=== PATIENT | male | born 1985 ===

== ENCOUNTER 2017-02-16 18:59 | Emergency (ER) | payer SELFPAY ==
[2017-02-16 19:09] VITALS: PULSE 87; TEMP 98.3; O2SAT 98
[2017-02-16] MEDS ORDERED: Oxycodone/Acetaminophen 5/325 mg Tab PO STA (19:55)
[2017-02-16] MEDS ORDERED: Oxycodone/Acetaminophen 5/325 mg Tab ONE (19:57)
--- NOTE | 2017-02-16 20:00 | C.PDOC ---
History Of Present Illness 32 yo male come in for evaluation of Left shoulder pain developed for past few hours after sustained mechanical fall, while playing sports. Pt reports, fell onto Left shoulder and " bone stick out from my shoulder", pain on Left shoulder movement. Otherwise, pt denies head injury, LOC, syncope, headache, dizziness, neck pain, CP, SOB, dyspnea, diaphoresis, palpitation, back pain, denies obvious deformity to left arm, weakness, sensory or vascular deficits to LUE. Denies any other active complaints. Ambulate to ED for evaluation, appears in pain. Time Seen by Provider: 02/16/17 19:13 Chief Complaint (Nursing): Upper Extremity Problem/Injury History Per: Patient History/Exam Limitations: no limitations Onset/Duration Of Symptoms: Hrs (past few hours) Current Symptoms Are (Timing): Still Present Quality: "Pain" Severity: Mild Pain Scale Rating Of: 3 Exacerbating Factor(s): Movement Recent travel outside of the [place]: No Past Medical History Reviewed: Historical Data, Nursing Documentation, Vital Signs Vital Signs: Last Vital Signs Temp 98.3 F 02/16/17 19:07 Pulse 87 02/16/17 19:07 Resp 16 02/16/17 19:07 BP Pulse Ox 98 02/16/17 20:06 Family History: States: Unknown Family Hx - Social History Hx Alcohol Use: No Hx Substance Use: No - Immunization History Hx Tetanus Toxoid Vaccination: No Hx Influenza Vaccination: No Hx Pneumococcal Vaccination: No Review Of Systems Except As Marked, All Systems Reviewed And Found Negative. Constitutional: Negative for: Other (diaphoresis) Cardiovascular: Negative for: Chest Pain, Palpitations, Other (sensory or vascular deficits to LUE) Respiratory: Negative for: Shortness of Breath, Other (dyspnea) Musculoskeletal: Positive for: Shoulder Pain (left). Negative for: Neck Pain, Back Pain, Other (obvious deformity of left shoulder) Neurological: Negative for: Weakness, Numbness, Headache, Dizziness, Other ( loss of consciousness, head injury, syncope) Physical Exam - Physical Exam Appears: Well, Non-toxic, No Acute Distress Skin: Normal Color, Warm, No Rash, No Ecchymosis Head: Atraumatic, Normacephalic Eye(s): bilateral: PERRL Nose: No Epistaxis, No Deformity, No Tenderness Neck: No Midline Cervical Tenderness, No Paracervical Tenderness, No Step Off Deformity, Supple Chest: Symmetrical, No Deformity, No Tenderness Cardiovascular: Rhythm Regular Respiratory: No Stridor, No Wheezing Back: No CVA Tenderness, No Vertebral Tenderness Extremity: Normal ROM (mild discomfort on Left shoulder extension/abduction due to pain, otherwise FAROM of PHIL.), Tenderness (over Left superior shoulder with mild deformity overlying ACJ. NO skin changes, no neurovascular deficits distally to injury.), No Deformity, No Swelling Neurological/Psych: Oriented x3, Normal Speech, Normal Motor, Normal Sensation, Normal Reflexes ED Course And Treatment O2 Sat by Pulse Oximetry: 98 (room air) Pulse Ox Interpretation: Normal - Other Rad Left shoulder X-Ray: Read By Radiologist Interpretation: Creator : Pierce Erickson MD. Dictator : Pierce Erickson MD. Adult Psychiatrist : Fire Assistant : Pierce Erickson MD. Approver2 : Report Date : 2016 20:52:51. My Comment : . Left shoulder three views. History: Injury. Comparison: None available. Findings: 1.6 centimeter superior displacement of the clavicle in relationship to the acromion. Glenohumeral joint space is preserved. Impression: 1.6 centimeter superior displacement of the clavicle in relationship to the acromion. Left clavicle X-Ray: Read By Radiologist Interpretation: Findings: 1.6 centimeter superior displacement of the left clavicle in relationship to the acromion. Glenohumeral joint space is preserved. Impression: 1.6 centimeter superior displacement of the left clavicle in relationship to the acromion. Progress Note: Plan: Percocet, Left clavicle x-ray, left shoulder x-ray. On re- evaluation, pt is afebrile, hemodynamicaly stable. Non-toxic. PulseOx 98% RA. Head: AT/NC. ENT: no acute finidngs. uvula midline, no edema. Neck: (-) midline tenderness. Lungs: CTA B/L, BS equal B/L. LUE: exam c/w shoulder and clavicular contusion r/o fracture, no neurovascular deficits. Xray review and c /w (+) left clavicular fx vs displacement. Sling, analgesics. Pt advised. ref. to F/u with Ortho in 1-2 days for re-eval. return if any new changes. Disposition Counseled Patient/Family Regarding: Studies Performed, Diagnosis, Need For Followup, Rx Given - Disposition Referrals: Kevin Catalan MD [Staff Provider] - [facility] [place] [Outside] [facility] [Outside] Disposition: HOME/ ROUTINE Disposition Time: 20:15 Condition: STABLE Additional Instructions: Sling pain medication as prescribed Follow up with Orthopedist in 2-3 days for re-evaluation. Return if any new changes. Prescriptions: traMADol [Ultram] 50 mg PO TID #10 tab Instructions: Clavicle Fracture (ED) Forms: Work Excuse Print Language: MALTESE - Clinical Impression Clinical Impression: AC separation - PA / TEACHER LEARNING DISABLED / Resident Statement MD/DO has reviewed & agrees with the documentation as recorded. - Scribe Statement The provider has reviewed the documentation as recorded by the Scribe Pat Posadas All medical record entries made by the Scribe were at my direction and personally dictated by me. I have reviewed the chart and agree that the record accurately reflects my personal performance of the history, physical exam, medical decision making, and the department course for this patient. I have also personally directed, reviewed, and agree with the discharge instructions and disposition.
--- NOTE | 2017-02-16 20:54 | RAD ---
Left shoulder three views History: Injury. Comparison: None available. Findings: 1.6 centimeter superior displacement of the clavicle in relationship to the acromion. Glenohumeral joint space is preserved. Impression: 1.6 centimeter superior displacement of the clavicle in relationship to the acromion.
--- NOTE | 2017-02-16 20:57 | RAD ---
Left clavicle two views History: Injury. Comparison: None available. Findings: 1.6 centimeter superior displacement of the left clavicle in relationship to the acromion. Glenohumeral joint space is preserved. Impression: 1.6 centimeter superior displacement of the left clavicle in relationship to the acromion.
[2017-02-16 21:29] VITALS: RESP 20
== END 2017-02-16 21:30 | disposition home or self-care (01) ==
LOC: C.ER 18:59
DX: S42.032A Displaced fracture of lateral end of left clavicle, initial encounter for closed fracture (principal); W18.39XA Other fall on same level, initial encounter; Y93.89 Activity, other specified; Y92.89 Other specified places as the place of occurrence of the external cause